=== PATIENT | female | born 1980 | race Caucasian/White ===

== ENCOUNTER 2020-01-30 05:18 | Inpatient (IN) | payer OTHER ==
[~2020-01-30] VITALS: Ht 154.9 cm; Wt 70.0 kg
[2020-01-30] VITALS (37 sets, daily range): BP systolic 84–136; BP diastolic 49–77; PULSE 86–120; TEMP 97.8–98.8
--- NOTE | 2020-01-30 05:30 | NUR ---
Patient ambulatory to unit accompanied by spouse. Patient state her water broke at 0200, clear fluid. Patient denies any covid symptoms or exposure. FHR and contraction monitors placed and explained. Patient states baby has been active. SVE /-2, amniotest +, clear fluid noted. Assessment completed. Patient came from [facility] and was seen at the office at 35 weeks. Patient states she does not have a car so has missed some of her last appointments. Dr. Russo called and orders received
[2020-01-30] MEDS ORDERED: PRENATAL TABLET PO (05:44)
[2020-01-30] MEDS ORDERED: NATURAL IRON65 MG (05:44)
--- NOTE | 2020-01-30 05:55 | NUR ---
Patient off monitor and up to bathroom where UA collected for UDS per protocol for late care.
--- NOTE | 2020-01-30 06:30 | NUR ---
Bedside report received from Dano PAZ. Patient resting in bed and has no needs at this time. 0655: SVE-6/75/-2 0700: This RN gowning up per protocol. Covid testing done at this time and patient tolerates well. 0720: Dr. Ramirez called and updated on patient. No new orders at this time. 0740: Patient off monitors to void. 0800: Patient more uncomfortable with contractions. Patient repositioned. 0910: Patient off monitors to void. Patient sitting by edge of bed.
[2020-01-30 06:43] LABS: HEMATOCRIT 37.8 % (37.0-47.0); HEMOGLOBIN 11.6 g/dl (12.5-16.0); MEAN CELL VOLUME 89 fl (80.0-100.0); MEAN CORPUSCULAR HEMOGLOBIN 27 pg (27.0-31.0); MEAN CORPUSCULAR HGB CONC 31 g/dl (33.0-37.0); PLATELET COUNT 250 K/mm3 (130-400); RED BLOOD COUNT 4.23 M/mm3 (4.10-5.30); REDCELL DISTRIBUTION WIDTH-CV 21.5 % (11.5-14.5)
[2020-01-30 06:55] LABS: TRICYCLIC ANTIDEPRESS URINE NEGATIVE
[2020-01-30 07:14] LABS: ANISOCYTOSIS 3+; BAND 18 % (0-10); BASOPHIL 1 % (0-2); HYPOCHROMIA 2+; LYMPHOCYTE 11 % (20.0-51.0); NEUTROPHILS 63 % (42.0-75.2); OVALOCYTES 1+; PLATELET ESTIMATE NORMAL (NORMAL); POIKILOCYTOSIS 1+
--- NOTE | 2020-01-30 09:40 | NUR ---
FHR baseline 125bpm and variable decelerations noted. Dr. Ramirez at nurses station reviewing FHR strip. 0940: Patient states she is feeling pressure. SVE :8-9//-[address] Ramirez updated. 1000: Patient begins to start pushing with contractions. Recurrent varibale/early decelerations noted. 1030: Dr. Ramirez continues to push with patient and updates patient on decisions. Labor down/get epidural/continue pushing. Patient requests epidural at this time. Patient right lateral and LR bolus started. FHR continues to trace variable/early decelerations. 1055: Patient right lateral and [facility] at bedside for epidural placement. 1107: Test dose given and patient tolerates well. 1120: Patient becoming more comfortable and resting. No needs at this time. 1130: Patient sleeping and FHR baseline 135-140bpm and recurrent late decelerations decreasing to 90bpm and spontaneously returning to baseline. 1210: Patient repositioned to wedged left. 1230: Dr. Ramirez at bedside and SVE 10/100/0 and orders to continue to push with contractions. 1250: Patient continues to push with contractions. Dr. Ramirez orders to start pitocin and continues to review FHR at nurses station. 1302: Pitocin discussed with patient and patient agrees with plan of care. Pitocin started at this time at 2mU per protocol.
--- NOTE | 2020-01-30 13:45 | NUR ---
at bedside and assessing progress. Vacuum extraction discussed and patient agrees with plan of care. 1352: Vacuum applied. 1354: Patient begins to start pushing with contractions and pressure applied with vacuum. Pop off x1. Vacuum applied and patient pushing with contraction and pressure applied. 1358: Vacuum assisted delivery of head and vacuum removed and body delivered. Infant bulbed syringed and cord clamped by and cut by FOB. Cord blood obtained. Infant to patients abdomen and E.Vane RN assumes care of infant. Pitocin paused. 1402: Spontaneous vaginal delivery of placenta and pitocin bolus started per protocol at [address] Ramirez repairs laceration and fundal massage done/firm/bleeding WNL. Pericare done and patient repositioned. Ice pack to perineum and plan of care discussed.
--- NOTE | 2020-01-30 16:50 | NUR ---
Patient ambulates to bathroom with standby assist. Voids and pericare done. New gown/underwear/ice pack on. Patient into wheel chair and to new room. Oriented to and plan of care discussed. Questions answered.
[2020-01-31 00:15] VITALS: BP 111/64; PULSE 68; TEMP 97.9
[2020-01-31 05:05] VITALS: BP 107/61; PULSE 92; TEMP 98.6
[2020-01-31 08:51] VITALS: BP 101/62; PULSE 89; TEMP 97.6
[2020-01-31] MEDS ORDERED: IBU800 M1 PO (09:10)
== END 2020-01-31 17:35 | disposition home or self-care (01) | DRG 807 ==
LOC: LDRO 05:18 → OB 07:00 → LDR 07:00 → OB 17:15
PROVIDERS: Obstetrics & Gynecology; ADMIT Obstetrics & Gynecology
PROC: 10D07Z6 Extraction of Products of Conception, Vacuum, Via Natural or Artificial Opening (ICD-10-PCS; principal; 2020-01-30)
PROC: 0HQ9XZZ Repair Perineum Skin, External Approach (ICD-10-PCS; 2020-01-30)
DX: O48.0 Post-term pregnancy (principal); Z37.0 Single live birth; O99.02 Anemia complicating childbirth; O70.0 First degree perineal laceration during delivery; O99.824 Streptococcus B carrier state complicating childbirth; D64.9 Anemia, unspecified; Z3A.40 40 weeks gestation of pregnancy
CPT/HCPCS: J2540; J2590; J2795; J7120